=== PATIENT | female | born 1995 | race Caucasian/White ===

== ENCOUNTER → 2022-03-03 14:45 | Outpatient (CLI) | payer OTHER, SELFPAY ==
--- NOTE | 2022-03-03 | DI.US.S_ITS ---
ULTRASOUND OF LEFT BREAST: 03/03/2022 CLINICAL: Palpable left breast lump felt by clinician. No prior exams were available for comparison. Ultrasound of the left breast was performed. Macias scale images of the real-time examination were reviewed. No significant abnormalities were seen sonographically in the left breast. Specifically, no finding to correspond to the patient's palpable abnormality. IMPRESSION: NEGATIVE There is no sonographic correlate to the patient's palpable abnormality and no evidence of malignancy. Screening mammography beginning at age 40 is recommended. Findings and recommendations were conveyed to the patient at time of exam. This exam was interpreted at Station ID: [id number]. Electronically Signed By: Radha webster/:03/03/2022 15:37:01 letter sent: Normal Exam Ultrasound BI-RADS: 1 Negative
== END ==
PROVIDERS: Family Provider Pediatrics; PCP Internal Medicine; Referring Provider Internal Medicine; Visit Provider Internal Medicine
DX: N63.20 Unspecified lump in the left breast, unspecified quadrant (principal); Z14.8 Genetic carrier of other disease
CPT/HCPCS: 76642

== ENCOUNTER → 2024-08-30 16:43 | Outpatient (CLI) | payer OTHER, SELFPAY | PROVIDERS: Family Provider Pediatrics; PCP Internal Medicine; Visit Provider Registered Nurse | DX: J02.9 Acute pharyngitis, unspecified (principal) | CPT/HCPCS: 87070 ==

== ENCOUNTER 2024-08-31 14:00 | Emergency (ER) | payer OTHER, SELFPAY ==
[2024-08-31] VITALS (33 sets, daily range): BP systolic 81–115; BP diastolic 50–71; PULSE 90–157; RESP 15–28; TEMP 38; O2SAT 94–98
--- NOTE | 2024-08-31 14:24 | DI.CT.S_ITS ---
PROCEDURE: CT SOFT TISSUE NECK W CON INDICATIONS: sore throat TECHNIQUE: After the administration of intravenous contrast, 3.0 mm axial sections acquired from the sella to the aortic arch. Additional oblique axial 3.0 mm sections acquired through the pharynx. 3 mm thick coronal and sagittal reformats were generated. For radiation dose reduction, the following was used: automated exposure control. COMPARISON: None. FINDINGS: Image quality: Motion artifact. Artifact from dental hardware.. Lymph nodes: No enlarged lymph nodes seen throughout the neck. Vessels: Visualized vasculature appears patent. Neck spaces: There is soft tissue fullness involving the right palatine tonsil region extending inferiorly to the level of the vocal folds. There is motion artifact in this area which limits evaluation. No definite measurable fluid collections identified, however not excluded secondary to artifact. Mass effect resulting in shifting of the airway to the left. There is no narrowing of the airway. Fluid/edema extension into the retropharyngeal space measuring up to 10 mm in thickness spanning C2 through C5. Glands: The parotid and submandibular glands appear normal. Thyroid gland demonstrates no significant abnormality. Miscellaneous: Visualized brain and orbits appear normal. Lung apices appear clear. Superficial soft tissues appear normal. Bones: No suspicious bony lesions. Visualized sinuses and mastoids appear unremarkable. IMPRESSION: Significant soft tissue thickening involving the right palatine tonsil region and extending to the vocal folds. Motion artifact in this area limits evaluation. No definite fluid collection is seen, however not excluded secondary to artifact. There is mass effect which shifts the airway to the left. There is no narrowing of the airway. There is some extension of edema/fluid to the retropharyngeal space measuring up to 10 mm in maximal thickness spanning C2 through C5. Retropharyngeal abscess is not excluded. Dictated by: Darius Lane M.D. on 08/31/2024 at 16:03 Approved by: Darius Lane M.D. on 08/31/2024 at 16:09
[2024-08-31] MEDS: ACETAMINOPHEN 325 MG TABLET 975 MG PO (14:25)
--- NOTE | 2024-08-31 14:25 | EKG_ITS ---
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
--- NOTE | 2024-08-31 14:27 | DI.RAD.S_ITS ---
PROCEDURE: XR CHEST 2V INDICATIONS: tachycardia TECHNIQUE: 2 views of the chest were acquired. COMPARISON: None. FINDINGS: Surgical changes and devices: None. Lungs and pleura: Lungs are clear. No pleural effusions or pneumothorax. Mediastinum: Mediastinal contours are normal. Heart size is normal. Bones and chest wall: No suspicious bony abnormalities. Soft tissues appear unremarkable. IMPRESSION: No acute cardiopulmonary abnormality is seen. Dictated by: Darius Lane M.D. on 08/31/2024 at 14:50 Approved by: Darius Lane M.D. on 08/31/2024 at 14:50
--- NOTE | 2024-08-31 14:30 | PC.NURSE ---
Patient meets SIRS criteria, I spoke with dr. Childress and was given orders.
--- NOTE | 2024-08-31 14:40 | ED.URI ---
HPI - URI/Sore Throat <Aries Jennings MD - Last Filed: 09/01/24 06:15> General Chief Complaint: Upper Respiratory Symptoms Stated Complaint: SOB, sore throat hard time swallowing Time Seen by Provider: 08/31/24 14:24 Source: patient Mode of arrival: Ambulatory History of Present Illness HPI Narrative: 28-year-old female with sore throat since yesterday, seen by a provider with throat culture reportedly negative, throat culture is pending at this time, having persisting throat problems, decreased oral intake, fast heart rate sensation. Denies chest pain or shortness of breath. Denies drool. She can move her neck well. Injury or trauma to her neck or throat known. Related Data Home Medications Medication Instructions Recorded Confirmed bupropion HCl 300 mg 24 hr tablet, 300 mg PO QAM 08/30/24 08/30/24 extended release buspirone 5 mg tablet 5 mg PO 3XD PRN anxiety 08/30/24 08/30/24 Allergies Allergy/AdvReac Type Severity Reaction Status Date / Time No Known Drug Allergies Allergy Verified 08/31/24 14:12 Patient History <Aries Jennings MD - Last Filed: 09/01/24 06:15> Social History Smoking Status: Never smoker Smoking Status: Never smoker Exam <Aries Jennings MD - Last Filed: 09/01/24 06:15> Narrative Exam Narrative: GENERAL: Well-developed patient, in mild distress. HEAD: Atraumatic. Normocephalic. EYES: Pupils equal round and reactive. Extraocular motions intact. No scleral icterus. No injection or drainage. ENT: Nose without bleeding, purulent drainage. Throat without erythema, tonsillar hypertrophy or exudate. Airway patent. No particular redness or swelling to visible oropharynx or uvula or palate. No anterior neck lesions obvious. Normal phonation NECK: Trachea midline. Non tender CARDIOVASCULAR: Fast rate regular rhythm, without murmurs, gallops, or rubs. RESPIRATORY: Clear to auscultation. Breath sounds equal bilaterally. No wheezes, rales, or rhonchi. GASTROINTESTINAL: Abdomen soft, non-tender, nondistended. EXTREMITIES: No edema or joint tenderness. BACK: Nontender without deformity or crepitance. No flank tenderness. NEURO: AOx3. Motor functions grossly nonfocal SKIN: No rash or erythema of visible areas Initial Vital Signs Initial Vital Signs: Vital Signs Temperature 100.4 F H 08/31/24 14:07 Pulse Rate 148 H 08/31/24 14:07 Respiratory Rate 17 08/31/24 14:07 Blood Pressure 112/71 08/31/24 14:07 Pulse Oximetry 97 08/31/24 14:07 Oxygen Delivery Method Room Air 08/31/24 14:07 <Nehemias Stahl DO - Last Filed: 08/31/24 22:09> Initial Vital Signs Initial Vital Signs: Vital Signs Temperature 100.4 F H 08/31/24 14:07 Pulse Rate 148 H 08/31/24 14:07 Respiratory Rate 17 08/31/24 14:07 Blood Pressure 112/71 08/31/24 14:07 Pulse Oximetry 97 08/31/24 14:07 Oxygen Delivery Method Room Air 08/31/24 14:07 Course <Aries Jennings MD - Last Filed: 09/01/24 06:15> Orders Ordered: Discontinued Medications Acetaminophen (Acetaminophen 325 Mg Tablet) 975 mg PO NOW ONE Stop: 08/31/24 14:16 Last Admin: 08/31/24 14:25 Dose: 975 mg Documented By: RAFFAELE Acetaminophen (Acetaminophen 325 Mg Tablet) 650 mg PO NOW ONE Stop: 08/31/24 22:11 Last Admin: 08/31/24 22:14 Dose: 650 mg Documented By: DIANA Dexamethasone (Dexamethasone 10 Mg/Ml Vial) 10 mg IV NOW ONE Stop: 08/31/24 14:27 Last Admin: 08/31/24 14:58 Dose: 10 mg Documented By: Dexamethasone (Dexamethasone 10 Mg/Ml Vial) 10 mg IV NOW ONE Stop: 08/31/24 18:12 Last Admin: 08/31/24 18:28 Dose: 10 mg Documented By: Sodium Chloride (Normal Saline 0.9%) 1,000 mls @ 1,000 mls/hr IV BOLUS ONE Stop: 08/31/24 15:23 Last Infusion: 08/31/24 18:18 Dose: Infused Documented By: Infusion: 08/31/24 16:58 Dose: Infused Documented By: Admin: 08/31/24 14:59 Dose: 1,000 mls/hr Documented By: Ceftriaxone Sodium 1,000 mg/ (Sodium Chloride) 100 mls @ 200 mls/hr IV NOW ONE Stop: 08/31/24 14:27 Last Infusion: 08/31/24 18:18 Dose: Infused Documented By: Infusion: 08/31/24 15:37 Dose: Infused Documented By: Admin: 08/31/24 14:58 Dose: 200 mls/hr Documented By: Clindamycin Phosphate (Cleocin) 900 mg in 50 mls @ 50 mls/hr IV NOW ONE Stop: 08/31/24 17:44 Last Infusion: 08/31/24 18:19 Dose: Infused Documented By: Admin: 08/31/24 16:55 Dose: 50 mls/hr Documented By: Sodium Chloride (Normal Saline 0.9%) 1,000 mls @ 1,000 mls/hr IV BOLUS ONE Stop: 08/31/24 18:29 Last Infusion: 08/31/24 18:36 Dose: Infused Documented By: Admin: 08/31/24 17:37 Dose: 1,000 mls/hr Documented By: Vital Signs Vital signs: Vital Signs - 8 hr 08/31/24 14:29 08/31/24 14:30 08/31/24 14:30 Pulse Rate 143 H 144 H Respiratory Rate 23 Blood Pressure 115/69 Pulse Oximetry 96 97 08/31/24 14:59 08/31/24 14:59 08/31/24 15:00 Pulse Rate 138 H 133 H Respiratory Rate 28 H Blood Pressure 101/71 Pulse Oximetry 98 08/31/24 15:30 08/31/24 16:00 08/31/24 16:30 Pulse Rate 141 H 126 H 116 H Respiratory Rate 25 H 20 19 Blood Pressure Pulse Oximetry 95 97 97 08/31/24 17:00 08/31/24 17:03 08/31/24 17:03 Pulse Rate 119 H 119 H Respiratory Rate 23 19 Blood Pressure 86/57 L 86/57 L Pulse Oximetry 97 97 08/31/24 17:07 08/31/24 17:07 08/31/24 17:19 Pulse Rate 118 H 116 H Respiratory Rate 22 20 Blood Pressure 89/56 L Pulse Oximetry 97 97 08/31/24 17:19 08/31/24 17:30 08/31/24 17:30 Pulse Rate 110 H Respiratory Rate 18 Blood Pressure 89/54 L 90/54 L Pulse Oximetry 97 08/31/24 17:45 08/31/24 17:45 08/31/24 17:46 Pulse Rate 120 H Respiratory Rate 19 Blood Pressure 84/50 L 87/57 L Pulse Oximetry 97 08/31/24 17:46 08/31/24 18:00 08/31/24 18:00 Pulse Rate 113 H 115 H 109 H Respiratory Rate 19 16 22 Blood Pressure 97/63 Pulse Oximetry 97 98 97 08/31/24 18:15 08/31/24 18:15 08/31/24 18:28 Pulse Rate 121 H Respiratory Rate 15 Blood Pressure 95/59 L 88/60 L Pulse Oximetry 98 08/31/24 18:28 08/31/24 18:30 08/31/24 18:30 Pulse Rate 157 H 104 H Respiratory Rate 25 H 21 Blood Pressure 92/54 L Pulse Oximetry 94 97 08/31/24 18:45 08/31/24 18:45 08/31/24 19:00 Pulse Rate 100 H Respiratory Rate 17 Blood Pressure 92/52 L 99/58 L Pulse Oximetry 97 08/31/24 19:00 08/31/24 19:15 08/31/24 19:15 Pulse Rate 99 H 98 H Respiratory Rate 17 17 Blood Pressure 89/53 L Pulse Oximetry 98 97 08/31/24 19:30 08/31/24 19:30 08/31/24 19:45 Pulse Rate 100 H Respiratory Rate 16 Blood Pressure 94/56 L 88/55 L Pulse Oximetry 98 08/31/24 19:45 08/31/24 20:00 08/31/24 20:00 Pulse Rate 92 H 91 H Respiratory Rate 17 17 Blood Pressure 93/55 L Pulse Oximetry 97 98 08/31/24 20:15 08/31/24 20:15 08/31/24 20:30 Pulse Rate 99 H Respiratory Rate 23 Blood Pressure 94/59 L 81/53 L Pulse Oximetry 97 08/31/24 20:30 08/31/24 20:45 08/31/24 20:45 Pulse Rate 94 H 99 H Respiratory Rate 17 18 Blood Pressure 88/53 L Pulse Oximetry 96 97 08/31/24 21:00 08/31/24 21:00 08/31/24 21:15 Pulse Rate 94 H Respiratory Rate 18 Blood Pressure 87/54 L 88/60 L Pulse Oximetry 97 08/31/24 21:15 08/31/24 21:30 08/31/24 21:30 Pulse Rate 93 H 90 Respiratory Rate 24 19 Blood Pressure 86/57 L Pulse Oximetry 98 96 08/31/24 21:45 08/31/24 21:45 08/31/24 22:00 Pulse Rate 95 H Respiratory Rate 24 Blood Pressure 96/63 91/64 Pulse Oximetry 97 08/31/24 22:00 Pulse Rate 93 H Respiratory Rate 21 Blood Pressure Pulse Oximetry 98 <Nehemias Stahl DO - Last Filed: 08/31/24 22:09> Orders Ordered: Discontinued Medications Acetaminophen (Acetaminophen 325 Mg Tablet) 975 mg PO NOW ONE Stop: 08/31/24 14:16 Last Admin: 08/31/24 14:25 Dose: 975 mg Documented By: RAFFAELE Acetaminophen (Acetaminophen 325 Mg Tablet) 650 mg PO NOW ONE Stop: 08/31/24 22:11 Last Admin: 08/31/24 22:14 Dose: 650 mg Documented By: DIANA Dexamethasone (Dexamethasone 10 Mg/Ml Vial) 10 mg IV NOW ONE Stop: 08/31/24 14:27 Last Admin: 08/31/24 14:58 Dose: 10 mg Documented By: Dexamethasone (Dexamethasone 10 Mg/Ml Vial) 10 mg IV NOW ONE Stop: 08/31/24 18:12 Last Admin: 08/31/24 18:28 Dose: 10 mg Documented By: Sodium Chloride (Normal Saline 0.9%) 1,000 mls @ 1,000 mls/hr IV BOLUS ONE Stop: 08/31/24 15:23 Last Infusion: 08/31/24 18:18 Dose: Infused Documented By: Infusion: 08/31/24 16:58 Dose: Infused Documented By: Admin: 08/31/24 14:59 Dose: 1,000 mls/hr Documented By: Ceftriaxone Sodium 1,000 mg/ (Sodium Chloride) 100 mls @ 200 mls/hr IV NOW ONE Stop: 08/31/24 14:27 Last Infusion: 08/31/24 18:18 Dose: Infused Documented By: Infusion: 08/31/24 15:37 Dose: Infused Documented By: Admin: 08/31/24 14:58 Dose: 200 mls/hr Documented By: Clindamycin Phosphate (Cleocin) 900 mg in 50 mls @ 50 mls/hr IV NOW ONE Stop: 08/31/24 17:44 Last Infusion: 08/31/24 18:19 Dose: Infused Documented By: Admin: 08/31/24 16:55 Dose: 50 mls/hr Documented By: Sodium Chloride (Normal Saline 0.9%) 1,000 mls @ 1,000 mls/hr IV BOLUS ONE Stop: 08/31/24 18:29 Last Infusion: 08/31/24 18:36 Dose: Infused Documented By: Admin: 08/31/24 17:37 Dose: 1,000 mls/hr Documented By: Vital Signs Vital signs: Vital Signs - 8 hr 08/31/24 14:29 08/31/24 14:30 08/31/24 14:30 Pulse Rate 143 H 144 H Respiratory Rate 23 Blood Pressure 115/69 Pulse Oximetry 96 97 08/31/24 14:59 08/31/24 14:59 08/31/24 15:00 Pulse Rate 138 H 133 H Respiratory Rate 28 H Blood Pressure 101/71 Pulse Oximetry 98 08/31/24 15:30 08/31/24 16:00 08/31/24 16:30 Pulse Rate 141 H 126 H 116 H Respiratory Rate 25 H 20 19 Blood Pressure Pulse Oximetry 95 97 97 08/31/24 17:00 08/31/24 17:03 08/31/24 17:03 Pulse Rate 119 H 119 H Respiratory Rate 23 19 Blood Pressure 86/57 L 86/57 L Pulse Oximetry 97 97 08/31/24 17:07 08/31/24 17:07 08/31/24 17:19 Pulse Rate 118 H 116 H Respiratory Rate 22 20 Blood Pressure 89/56 L Pulse Oximetry 97 97 08/31/24 17:19 08/31/24 17:30 08/31/24 17:30 Pulse Rate 110 H Respiratory Rate 18 Blood Pressure 89/54 L 90/54 L Pulse Oximetry 97 08/31/24 17:45 08/31/24 17:45 08/31/24 17:46 Pulse Rate 120 H Respiratory Rate 19 Blood Pressure 84/50 L 87/57 L Pulse Oximetry 97 08/31/24 17:46 08/31/24 18:00 08/31/24 18:00 Pulse Rate 113 H 115 H 109 H Respiratory Rate 19 16 22 Blood Pressure 97/63 Pulse Oximetry 97 98 97 08/31/24 18:15 08/31/24 18:15 08/31/24 18:28 Pulse Rate 121 H Respiratory Rate 15 Blood Pressure 95/59 L 88/60 L Pulse Oximetry 98 08/31/24 18:28 08/31/24 18:30 08/31/24 18:30 Pulse Rate 157 H 104 H Respiratory Rate 25 H 21 Blood Pressure 92/54 L Pulse Oximetry 94 97 08/31/24 18:45 08/31/24 18:45 08/31/24 19:00 Pulse Rate 100 H Respiratory Rate 17 Blood Pressure 92/52 L 99/58 L Pulse Oximetry 97 08/31/24 19:00 08/31/24 19:15 08/31/24 19:15 Pulse Rate 99 H 98 H Respiratory Rate 17 17 Blood Pressure 89/53 L Pulse Oximetry 98 97 08/31/24 19:30 08/31/24 19:30 08/31/24 19:45 Pulse Rate 100 H Respiratory Rate 16 Blood Pressure 94/56 L 88/55 L Pulse Oximetry 98 08/31/24 19:45 08/31/24 20:00 08/31/24 20:00 Pulse Rate 92 H 91 H Respiratory Rate 17 17 Blood Pressure 93/55 L Pulse Oximetry 97 98 08/31/24 20:15 08/31/24 20:15 08/31/24 20:30 Pulse Rate 99 H Respiratory Rate 23 Blood Pressure 94/59 L 81/53 L Pulse Oximetry 97 08/31/24 20:30 08/31/24 20:45 08/31/24 20:45 Pulse Rate 94 H 99 H Respiratory Rate 17 18 Blood Pressure 88/53 L Pulse Oximetry 96 97 08/31/24 21:00 08/31/24 21:00 08/31/24 21:15 Pulse Rate 94 H Respiratory Rate 18 Blood Pressure 87/54 L 88/60 L Pulse Oximetry 97 08/31/24 21:15 08/31/24 21:30 08/31/24 21:30 Pulse Rate 93 H 90 Respiratory Rate 24 19 Blood Pressure 86/57 L Pulse Oximetry 98 96 08/31/24 21:45 08/31/24 21:45 08/31/24 22:00 Pulse Rate 95 H Respiratory Rate 24 Blood Pressure 96/63 91/64 Pulse Oximetry 97 08/31/24 22:00 Pulse Rate 93 H Respiratory Rate 21 Blood Pressure Pulse Oximetry 98 MDM - URI/Sore Throat <Aries Jennings MD - Last Filed: 09/01/24 06:15> Lab Data Lab results narrative: White blood cell count 8100, hemoglobin 14.8, platelets adequate. Sodium 138, potassium 4.4, serum CO2 27, BUN and creatinine were normal, glucose 116 normal. COVID/RSV/influenza swab negative. Monospot negative. 08/31/24 15:00 08/31/24 15:00 Labs: Lab Results 08/31/24 08/31/24 08/31/24 Range/Units 14:20 15:00 16:55 WBC 8.1 (4.5-11.0) X10^3/uL RBC 5.18 (4.0-5.2) X10^6/uL Hgb 14.8 (12.0-16.0) g/dL Hct 44.1 (36-46) % MCV 85.1 (80-100) fL MCH 28.5 (26-34) PG MCHC 33.5 (30-36) % RDW 14.3 (11.6-14.8) % Plt Count 182 (150-400) X10^3/uL Neut % (Auto) 83.9 H (50-75) % Lymph % (Auto) 7.0 L (25-40) % Callahan % (Auto) 8.6 (3-14) % Eos % (Auto) 0.1 L (2-4) % Baso % (Auto) 0.4 (0-2) % Neut # (Auto) 6800 (9597-1389) /uL Lymph # (Auto) 600 L (0496-0690) /uL Callahan # (Auto) 700 (0-900) /uL Eos # (Auto) 0 (0-450) /uL Baso # (Auto) 0 (0-100) /uL Sodium 138 (137-145) mmol/L Potassium 4.4 (3.4-5.1) mmol/L Chloride 98 (98-107) mmol/L Carbon Dioxide 27 (22-32) mmol/L BUN 7 (7-17) mg/dL Creatinine 0.71 (0.52-1.04) mg/dL Estimated GFR > 60 (>60) mL/min BUN/Creatinine Ratio 9.9 (6-22) Glucose 116 H (70-100) mg/dL Calcium 9.5 (8.4-10.2) mg/dL Total Bilirubin 0.6 (0.2-1.3) mg/dL AST 32 (14-36) IU/L ALT 23 (<35) IU/L Alkaline Phosphatase 48 (38-126) U/L Total Protein 7.7 (6.3-8.2) g/dL Albumin 4.8 (3.5-5.0) g/dL Globulin 2.9 (1.7-4.1) g/dL Albumin/Globulin Ratio 1.7 (1.0-2.8) SARS-CoV-2 (PCR) Negative (Negative) Monoscreen Negative (Negative) Influenza A (RT-PCR) Flu a negative (NEGATIVE) Influenza B (RT-PCR) Flu b negative (NEGATIVE) RSV (PCR) Negative (Negative) Group A Strep (PCR) Negative (Negative) Imaging Data CT soft tissue neck: Radiologist's Impression: [place] [address] CT Scan Report Signed Patient: Sima Arreaga MR#: [id number] : 1995 Acct:[id number] Age/Sex: 28 / F Date of Service: 08/31/24 Loc: ED Accession Number: [id number] Procedure: CT soft tissue neck w con Ordering Provider: Aries Jennings MD PROCEDURE: CT SOFT TISSUE NECK W CON INDICATIONS: sore throat TECHNIQUE: After the administration of intravenous contrast, 3.0 mm axial sections acquired from the sella to the aortic arch. Additional oblique axial 3.0 mm sections acquired through the pharynx. 3 mm thick coronal and sagittal reformats were generated. For radiation dose reduction, the following was used: automated exposure control. COMPARISON: None. FINDINGS: Image quality: Motion artifact. Artifact from dental hardware.. Lymph nodes: No enlarged lymph nodes seen throughout the neck. Vessels: Visualized vasculature appears patent. Neck spaces: There is soft tissue fullness involving the right palatine tonsil region extending inferiorly to the level of the vocal folds. There is motion artifact in this area which limits evaluation. No definite measurable fluid collections identified, however not excluded secondary to artifact. Mass effect resulting in shifting of the airway to the left. There is no narrowing of the airway. Fluid/edema extension into the retropharyngeal space measuring up to 10 mm in thickness spanning C2 through C5. Glands: The parotid and submandibular glands appear normal. Thyroid gland demonstrates no significant abnormality. Miscellaneous: Visualized brain and orbits appear normal. Lung apices appear clear. Superficial soft tissues appear normal. Bones: No suspicious bony lesions. Visualized sinuses and mastoids appear unremarkable. IMPRESSION: Significant soft tissue thickening involving the right palatine tonsil region and extending to the vocal folds. Motion artifact in this area limits evaluation. No definite fluid collection is seen, however not excluded secondary to artifact. There is mass effect which shifts the airway to the left. There is no narrowing of the airway. There is some extension of edema/fluid to the retropharyngeal space measuring up to 10 mm in maximal thickness spanning C2 through C5. Retropharyngeal abscess is not excluded. Dictated by: Darius Lane M.D. on 08/31/2024 at 16:03 Approved by: Darius Lane M.D. on 08/31/2024 at 16:09 Chest x-ray: Radiologist's Impression: [place] [address] XRay Report Signed Patient: Sima Arreaga MR#: [id number] : 1995 Acct:[id number] Age/Sex: 28 / F Date of Service: 08/31/24 Loc: ED Accession Number: [id number] Procedure: XR chest 2V Ordering Provider: Aries Jennings MD PROCEDURE: XR CHEST 2V INDICATIONS: tachycardia TECHNIQUE: 2 views of the chest were acquired. COMPARISON: None. FINDINGS: Surgical changes and devices: None. Lungs and pleura: Lungs are clear. No pleural effusions or pneumothorax. Mediastinum: Mediastinal contours are normal. Heart size is normal. Bones and chest wall: No suspicious bony abnormalities. Soft tissues appear unremarkable. IMPRESSION: No acute cardiopulmonary abnormality is seen. Dictated by: Darius Lane M.D. on 08/31/2024 at 14:50 Approved by: Darius Lane M.D. on 08/31/2024 at 14:50 ECG Data Attestation: I personally reviewed and interpreted this ECG as follows: Interpretation: Sinus tachycardia with ventricular rate 138, no obvious ST segment elevation or depression changes. CA 116, QRS 60, QTC 412. MDM Narrative Medical decision making narrative: Sore throat for the last couple of days, worsening, fast heart rate 140s on triage noted. Low-grade fever. Throat swab negative yesterday by report, throat culture is pending. Labs sent. IV fluid bolus, IV Decadron, IV ceftriaxone, CT soft tissue neck study. Chest x-ray, EKG. Strep screen negative. EKG does show sinus tachycardia 140s, no obvious ischemic changes. COVID flu RSV negative. Monospot negative. Rapid strep strain requested from here, reportedly negative yesterday. Today negative. Chest x-ray shows no cardiac enlargement, no suspicion for congestive heart failure changes. See radiology report. After 1 L bolus patient has heart rate of 120s, we will re-bolus with a second liter NS. CT soft tissue neck results pending. CT soft tissue neck with IV contrast. Impressions: ?Significant soft tissue thickening involving the right palatine tonsillar region and extending to the vocal cords. Motion artifact in this area limits evaluation. No definite fluid collection is seen, however not excluded secondary to artifact. There is mass effect which shift of the airway to the left. There is no narrowing of the airway. There is some extension of the edema/fluid to the retropharyngeal space measuring up to 10 mm in maximal thickness spanning C2 through C5. Retropharyngeal abscess is not excluded. ? See radiology report. We will give additional antibiotic IV clindamycin. Otolaryngology on-call to be paged. [phone], otolaryngology on-call Dr. Farley paged again, no response thus far per [facility], offices now closed, we will contact [facility] to see if they have another means of reaching him. Consider alternate otolaryngology consultation which would require transfer. 1814, otolaryngology on-call Dr. Farley returned phone call from [facility], case described, CT impression results relayed, he advised additional IV Decadron 10mg steroid dose for now, okay with current antibacterial regimen IV ceftriaxone and clindamycin. However he relayed that if there is a concern for retropharyngeal abscess that they did not treat that at [facility] facility either, advises transfer to [facility] 1819, CT images to be pushed to [facility], consult iew otolaryngology, possible transfer, signed out to Dr Stahl 1837: Discussed case with transfer center at [facility], will receive call back with ENT for possible transfer given patient with high concern for retropharyngeal abscess. 1925: Had a discussion with ENT Dr. Jansen ([facility]) believes that this patient does require admission but does not believe the CT scan read showing acute abscess, states that at this time would only recommend continued IV antibiotics, would continue Unasyn, according to transfer center they will call back to see if medicine will admit, but also recommending to reach out to surrounding hospitals for admission given patient is meeting sepsis criteria secondary to a tonsillitis. States the call back if any acute changes but no other further recommendations at this time. 2110: Had a discussion with ENT at [facility] Dr. Cruz, agrees that patient not needing urgent or emergent drainage but does recommend transfer given possibility of decompensation continue IV antibiotics fluid resuscitation no additional interventions needed at this time 2131: Had a discussion with [facility] hospitalist Dr. Morris, agrees with transfer for to [facility] this was informed to the patient they understand agree with this plan <Nehemias Stahl, DO - Last Filed: 08/31/24 22:09> Lab Data Labs: Lab Results 08/31/24 08/31/24 08/31/24 Range/Units 14:20 15:00 16:55 WBC 8.1 (4.5-11.0) X10^3/uL RBC 5.18 (4.0-5.2) X10^6/uL Hgb 14.8 (12.0-16.0) g/dL Hct 44.1 (36-46) % MCV 85.1 (80-100) fL MCH 28.5 (26-34) PG MCHC 33.5 (30-36) % RDW 14.3 (11.6-14.8) % Plt Count 182 (150-400) X10^3/uL Neut % (Auto) 83.9 H (50-75) % Lymph % (Auto) 7.0 L (25-40) % Callahan % (Auto) 8.6 (3-14) % Eos % (Auto) 0.1 L (2-4) % Baso % (Auto) 0.4 (0-2) % Neut # (Auto) 6800 (1948-7991) /uL Lymph # (Auto) 600 L (2136-1265) /uL Callahan # (Auto) 700 (0-900) /uL Eos # (Auto) 0 (0-450) /uL Baso # (Auto) 0 (0-100) /uL Sodium 138 (137-145) mmol/L Potassium 4.4 (3.4-5.1) mmol/L Chloride 98 (98-107) mmol/L Carbon Dioxide 27 (22-32) mmol/L BUN 7 (7-17) mg/dL Creatinine 0.71 (0.52-1.04) mg/dL Estimated GFR > 60 (>60) mL/min BUN/Creatinine Ratio 9.9 (6-22) Glucose 116 H (70-100) mg/dL Calcium 9.5 (8.4-10.2) mg/dL Total Bilirubin 0.6 (0.2-1.3) mg/dL AST 32 (14-36) IU/L ALT 23 (<35) IU/L Alkaline Phosphatase 48 (38-126) U/L Total Protein 7.7 (6.3-8.2) g/dL Albumin 4.8 (3.5-5.0) g/dL Globulin 2.9 (1.7-4.1) g/dL Albumin/Globulin Ratio 1.7 (1.0-2.8) SARS-CoV-2 (PCR) Negative (Negative) Monoscreen Negative (Negative) Influenza A (RT-PCR) Flu a negative (NEGATIVE) Influenza B (RT-PCR) Flu b negative (NEGATIVE) RSV (PCR) Negative (Negative) Group A Strep (PCR) Negative (Negative) MDM Narrative Medical decision making narrative: Sore throat for the last couple of days, worsening, fast heart rate 140s on triage noted. Low-grade fever. Throat swab negative yesterday by report, throat culture is pending. Labs sent. IV fluid bolus, IV Decadron, IV ceftriaxone, CT soft tissue neck study. Chest x-ray, EKG. EKG does show sinus tachycardia 140s, no obvious ischemic changes. COVID flu RSV negative. Monospot negative. Rapid strep strain requested from here, reportedly negative at outside facility yesterday. Chest x-ray shows no cardiac enlargement, no suspicion for congestive heart failure like changes. See radiology report. After 1 L bolus patient has heart rate of 120s, we will re-bolus with a second liter NS. CT soft tissue neck results pending. CT soft tissue neck with IV contrast. Impressions: ?Significant soft tissue thickening involving the right palatine tonsillar region and extending to the vocal cords. Motion artifact in this area limits evaluation. No definite fluid collection is seen, however not excluded secondary to artifact. There is mass effect which shift of the airway to the left. There is no narrowing of the airway. There is some extension of the edema/fluid to the retropharyngeal space measuring up to 10 mm in maximal thickness spanning C2 through C5. Retropharyngeal abscess is not excluded. ? See radiology report. We will give additional antibiotic IV clindamycin. Otolaryngology on-call to be paged. [phone], otolaryngology on-call Dr. Farley paged again, no response thus far per [facility], offices now closed, we will contact [facility] to see if they have another means of reaching him. Consider alternate otolaryngology consultation which would require transfer. 1814, otolaryngology on-call Dr. Farley returned phone call from [facility], case described, CT impression results relayed, he advised additional IV Decadron steroid dose for now, okay with current antibacterial regimen IV ceftriaxone and clindamycin. However he relayed that if there is a concern for retropharyngeal abscess that they did not treat that at [facility] facility either, advises transfer to [facility] 182, CT images to be pushed to [facility], consult iew otolaryngology, possible transfer, signed out to Dr Stahl 1837: Discussed case with transfer center at [facility], will receive call back with ENT for possible transfer given patient with high concern for retropharyngeal abscess. 192: Had a discussion with ENT Dr. Jansen ([facility]) believes that this patient does require admission but does not believe the CT scan read showing acute abscess, states that at this time would only recommend continued IV antibiotics, would continue Unasyn, according to transfer center they will call back to see if medicine will admit, but also recommending to reach out to surrounding hospitals for admission given patient is meeting sepsis criteria secondary to a tonsillitis. States the call back if any acute changes but no other further recommendations at this time. 2110: Had a discussion with ENT at [facility] Dr. Cruz, agrees that patient not needing urgent or emergent drainage but does recommend transfer given possibility of decompensation continue IV antibiotics fluid resuscitation no additional interventions needed at this time 2131: Had a discussion with [facility] hospitalist Dr. Morris, agrees with transfer for to [facility] this was informed to the patient they understand agree with this plan Discharge Plan Departure Patient Disposition: General Acute Hospital Clinical Impression: Acute sore throat, Retropharyngeal abscess, Acute tonsillitis, Sepsis Prescriptions: No Action buspirone 5 mg tablet 5 mg PO 3XD PRN (Reason: anxiety) bupropion HCl 300 mg tablet extended release 24 hr 300 mg PO QAM Referrals: Pham Rodriguez MD [Primary Care Provider] -
[2024-08-31] MEDS: cefTRIAXone 1,000 MG in SODIUM CHLORIDE 0.9% 100 ML 200 MG IV (14:58)
[2024-08-31] MEDS: DEXAMETHASONE 10 MG/ML VIAL IV ×2 (14:58→18:28)
[2024-08-31] MEDS: SODIUM CHLORIDE 0.9% 1,000 ML 1000 ML IV ×2 (14:59→17:37)
[2024-08-31 15:20] LABS: Add Manual Diff / Slide Review NO; Basophils Absolute Auto 0 /uL (0-100); Basophils Percent Auto 0.4 % (0-2); Eosinophils Absolute Auto 0 /uL (0-450); Eosinophils Percent Auto 0.1 % (2-4); Hematocrit 44.1 % (36-46); Hemoglobin 14.8 g/dL (12.0-16.0); Lymphocytes Absolute Auto 600 /uL (1100-4500); Mean Corpuscular HGB Conc 33.5 % (30-36); Mean Corpuscular Hemoglobin 28.5 PG (26-34); Mean Corpuscular Volume 85.1 fL (80-100); Monocytes Absolute Auto 700 /uL (0-900); Monocytes Percent Auto 8.6 % (3-14); Neutrophils Absolute Auto 6800 /uL (1500-7000); Neutrophils Percent Auto 83.9 % (50-75); Platelet Count 182 X10^3/uL (150-400); Red Blood Cell Count 5.18 X10^6/uL (4.0-5.2); Red Cell Distribution Width 14.3 % (11.6-14.8); White Blood Cell Count 8.1 X10^3/uL (4.5-11.0)
[2024-08-31 15:26] LABS: Alanine Aminotransferase 23 IU/L (<35); Albumin 4.8 g/dL (3.5-5.0); Albumin Globulin Ratio 1.7 (1.0-2.8); Alkaline Phosphatase 48 U/L (38-126); Aspartate Aminotransferase 32 IU/L (14-36); BUN Creatinine Ratio 9.9 (6-22); Bilirubin Total 0.6 mg/dL (0.2-1.3); Blood Urea Nitrogen 7 mg/dL (7-17); Calcium 9.5 mg/dL (8.4-10.2); Carbon Dioxide 27 mmol/L (22-32); Chloride 98 mmol/L (98-107); Estimated Glomerular Filt Rate > 60 mL/min (>60); Globulin 2.9 g/dL (1.7-4.1); Glucose 116 mg/dL (70-100); HEMOLYSIS 31 (0-50); Potassium 4.4 mmol/L (3.4-5.1); Sodium 138 mmol/L (137-145); Total Protein 7.7 g/dL (6.3-8.2)
[2024-08-31 15:28] LABS: Influenza A - CEPHEID Flu A NEGATIVE (NEGATIVE); Influenza B - CEPHEID Flu B NEGATIVE (NEGATIVE); Respiratory Syncytial Virus Negative (Negative)
[2024-08-31 15:36] LABS: Monotest Negative (Negative)
[2024-08-31 15:49] LABS: COVID-19 CEPHEID 4-PLEX PCR Negative (Negative)
[2024-08-31] MEDS: CLINDAMYCIN 900 MG/50 ML PIGGYBACK 50 MG IV (16:55)
[2024-08-31 17:09] LABS: Strep Grp A by PCR Rapid Negative (Negative)
--- NOTE | 2024-08-31 17:15 | PC.NURSE ---
Dr Jennings notified of BP 85/59 Second liter hung.
--- NOTE | 2024-08-31 17:47 | PC.NURSE ---
On-Call ENT, Dr. 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 Farley, or another provider that may be crown ironer. 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 Cell phone went straight to voicemail every call and the house phone went to voicemail after four rings.
[2024-08-31] MEDS: ACETAMINOPHEN 325 MG TABLET 650 MG PO (22:14)
--- NOTE | 2024-08-31 22:14 | PC.NURSE ---
report given to JAEL Ritchie, CCT
== END 2024-08-31 21:20 | disposition short-term general hospital (02) ==
PROVIDERS: Emergency Medicine; Emergency Provider Student in an Organized Health Care Education/Training Program; Family Provider Pediatrics; PCP Family Medicine
DX: J39.0 Retropharyngeal and parapharyngeal abscess (principal); J03.90 Acute tonsillitis, unspecified; A41.9 Sepsis, unspecified organism; R00.0 Tachycardia, unspecified
CPT/HCPCS: 0241U; 36415; 70491; 71046; 80053; 85025; 86318; 87070; 87651; 93005; 96365; 96367; 96375; 96376; 99284; 99285; J0696; J1100; Q9967

== ENCOUNTER → 2024-09-30 14:50 | Outpatient (CLI) | payer OTHER, SELFPAY | PROVIDERS: Family Provider Pediatrics; PCP Family Medicine; Referring Provider Family Medicine; Visit Provider Family Medicine | DX: R19.7 Diarrhea, unspecified (principal) | CPT/HCPCS: 82274; 83013; 83993; 87329; 87493 ==